=== PATIENT | male | born 1955 | race Caucasian/White ===

== ENCOUNTER 2020-05-31 04:50 | Emergency (ER) | payer OTHER, SELFPAY ==
[2020-05-31] VITALS (11 sets, daily range): BP systolic 77–112; BP diastolic 40–73; PULSE 59–72; RESP 20–114; TEMP 36.6; O2SAT 96–99
--- NOTE | ~2020-05-31 | XR_ITS ---
EXAMINATION: XR chest 1V portable EXAM DATE: 05/31/2020 06:33 INDICATION: Fall. TECHNIQUE: Portable AP frontal chest x-ray was obtained. There is no prior study for comparison. FINDINGS: There is a dual lead pacemaker/AICD seen with leads projecting over the expected locations of the right atrial appendage and right ventricle. The lungs are clear. There are no pleural effusio ns. The cardiomediastinal silhouette is within normal limits. There is no pneumothorax suspected. The bones and soft tissues are unremarkable. IMPRESSION: No acute cardiopulmonary findings. Reviewed, dictated and finalized at location A. ICAL HANDLER
--- NOTE | ~2020-05-31 | CT_ITS ---
EXAMINATION: CT brain wo con EXAM DATE: 05/31/2020 05:43 INDICATION: Fall, head injury. TECHNIQUE: Spiral CT of the head was performed without contrast. Axial, coronal and sagittal images were reviewed. The dose-length product (DLP) for this examination was 605.33 mGy-cm. The exposure w as tailored according to patient size, and iterative reconstruction (ASIR) was used as additional dos e reduction technique. There is no prior study for comparison. FINDINGS: There is no acute intraparenchymal hemorrhage. No evidence of intraparenchymal brain mass lesion. No evidence of acute infarction. There is no mass effect or midline shift. The ventricles are normal in size. There are no extra-axial collections. There are no acute calvarial fractures. T he orbits are unremarkable. Soft tissue is unremarkable. Mild left ethmoid mucoperiosteal thickenin g. IMPRESSION: 1. No acute intracranial findings. Reviewed, dictated and finalized at location A. OVER
--- NOTE | ~2020-05-31 | CT_ITS ---
EXAMINATION: CT facial & cervical spine wo EXAM DATE: 05/31/2020 05:43 INDICATION: Fall, head injury. TECHNIQUE: Spiral CT of the facial bones was acquired in the axial plane. Coronal reformatted images were also reviewed. Spiral CT of the cervical spine was performed without contrast. Axial images we re reviewed. Coronal and sagittal reformatted images were also reviewed. The dose-length product (DL P) for this examination was 461.42 mGy-cm. The exposure was tailored according to patient size, and iterative reconstruction (ASIR) was used as additional dose reduction technique. There is no prior s tudy for comparison. FINDINGS: FACIAL CT: There are no displaced acute nasal bone fractures. The mandible, sinuses and orbits are i ntact. The orbits, globes and extraocular muscles are unremarkable. Mild left ethmoid mucoperiost eal disease. There is moderate rightward nasal septal deviation. There is left maxillary sinus window procedure. CERVICAL CT: There is no evidence of acute cervical fracture. The odontoid process is intact. Pre-d ens space is normal. Prevertebral soft tissue is normal. There are no soft tissue abnormalities noelle ntified. There is no disc space widening or traumatic vertebral body subluxation suspected. Moderat e cervical arthropathy. Lung apices unremarkable. A detailed level by level evaluation of spondylosi s can be added as addendum if requested. IMPRESSION: 1. No acute facial or cervical fracture. 2. Mild left ethmoid mucoperiosteal thickening. 3. Moderate rightward nasal septal deviation. 4. Moderate cervical arthropathy. Reviewed, dictated and finalized at location A. ERNAIL SCULPTOR
--- NOTE | 2020-05-31 05:17 | ECG_ITS ---
Measurements Intervals [place] Rate: 64 P: 21 AR: 170 QRS: -4 QRSD: 106 T: 54 QT: 428 QTc: 444 Interpretive Statements SINUS RHYTHM NORMAL ECG Electronically Signed On 05-31-2020 8:35:37 [employer] by Yasir Capps D.O.
--- NOTE | 2020-05-31 05:19 | ED.GENADULT ---
HPI - General Adult General Chief complaint: Syncope <Ismael Macdonald DO - Last Filed: 05/31/20 19:18> Stated complaint: laceration <Ismael Macdonald DO - Last Filed: 05/31/20 19:18> Time Seen by Provider: 05/31/20 05:11 <Ismael Macdonald DO - Last Filed: 05/31/20 19:18> Source: RN notes reviewed <Ismael Macdonald DO - Last Filed: 05/31/20 19:18> History of Present Illness HPI narrative: Patient presents to emergency department from home for syncopal episode. Patient states he got up this evening to use the restroom when he had a syncopal episode. He states he remembers being dizzy and fell and he believes he struck the wall when he fell causing a laceration over his left superior scalp he is unsure of his last tetanus shot. This time patient complains of pain in his head as well as pain in the right side of his jaw worse with trying to open his mouth. He denies any recent illness denies any fevers or chills chest pain shortness of breath abdominal pain nausea vomiting or any other symptoms he states he is on a blood thinner but cannot recall the name <Ismael Macdonald DO - Last Filed: 05/31/20 19:18> Related Data Allergies/adverse reactions: Allergies Allergy/AdvReac Type Severity Reaction Status Date / Time Penicillins Allergy Unknown Verified 06/15/15 11:45 Sulfa (Sulfonamide Allergy Unknown Verified 06/15/15 11:45 Antibiotics) <Ismael Macdonald DO - Last Filed: 05/31/20 19:18> Review of Systems Review of Systems: Narrative: Gen.: Denies fevers or chills Eyes: Denies eye pain or visual change ENT: Denies congestion Respiratory: Denies shortness of breath or cough CV: See HPI GI: Denies abdominal pain nausea, emesis or diarrhea Musculoskeletal: Denies back pain or muscle pain Neuro: Denies numbness, tingling, weakness or focal weakness Skin: For scalp laceration Except as documented, all other systems reviewed and negative <Ismael Macdonald DO - Last Filed: 05/31/20 19:18> PMFSH Past Medical History Medical History: Medical History (Updated 05/31/20 @ 11:55 by Nishi Wynn MD) Diabetes mellitus Hypertension <Ismael Macdonald DO - Last Filed: 05/31/20 19:18> Social History Social History: Social History (Updated 05/31/20 @ 05:20 by Ismael Macdonald DO) Smoking status: Never smoker Gender identity (if verbalized by the patient): Male <Ismael Macdonald DO - Last Filed: 05/31/20 19:18> Exam Narrative: Exam Narrative: APPEARANCE: No acute distress, nontoxic, resting in bed EYES: EOMI HEENT: Normocephalic, TMs clear bilaterally nares patent oral mucosa moist tenderness palpation over the right TMJ no swelling or ecchymosis pain with fully opening of the mouth no loose or avulsed teeth Neck: Supple no midline tenderness palpation pain with rotation bilaterally in the lower neck RESPIRATORY: No respiratory distress Clear to auscultation bilaterally with no rhonchi wheezing or rales. CARDIOVASCULAR: Regular rate and rhythm without murmurs rubs or gallops. ABDOMINAL: Soft, nontender, nondistended, no rebound or guarding MUSCULOSKELETAl: Moves all extremities. No clubbing, cyanosis or edema. NEURO: Awake and alert x 4. Following commands, speech normal, no focal deficits SKIN:: Warm, dry. No rashes lesions or 6 cm laceration over the left superior scalp that is linear and deep with mild venous bleeding no foreign body PSYCHIATRIC: Normal affect/mood, <DO Jason Pino Last Filed: 05/31/20 19:18> Course Course Emergency Course: Care turned over to Dr. Wynn at shift change awaiting repeat orthostatic vital signs and further disposition <Ismael Macdonald DO - Last Filed: 05/31/20 19:18> Reevaluation(s) Reevaluation #1: Currently patient feeling okay, denying any symptoms. Patient was able to get out of bed and walk around without any lightheadedness or dizziness. Patient was informed to stop all the blood pressure medica
[2020-05-31] MEDS: SODIUM CHLORIDE 0.9% IV 1,000 ML 999 ML IV CONT ×2 (05:47→06:52)
[2020-05-31 05:59] LABS: Basophils Absolute Auto 0.1 K/mm3 (0.0-0.1); Basophils Percent Auto 0.6 % (0.2-1.2); Eosinophils Absolute Auto 0.3 K/mm3 (0-0.3); Eosinophils Percent Auto 2.5 % (0-4.4); Hematocrit 44.3 % (42.0-52.0); Hemoglobin 15.1 g/dL (14.0-18.0); Immature Granulocyte Absolute 0.04 K/mm3 (0.00-0.031); Immature Granulocyte Percent A 0.4 % (0-0.5); Lymphocytes Absolute Auto 1.17 K/mm3 (0.9-3.2); Lymphocytes Percent Auto 11.8 % (18.3-44.2); Mean Corpuscular HGB Conc 34.1 g/dl (32-36); Mean Corpuscular Hemoglobin 29.7 pg (26-34); Mean Platelet Volume 9.8 fl (7.4-10.4); Monocytes Absolute Auto 0.6 K/mm3 (0.1-0.6); Monocytes Percent Auto 5.8 % (2.6-8.5); Neutrophils Absolute Auto 7.8 K/mm3 (1.3-6.7); Neutrophils Percent Auto 78.9 % (45.5-73.1); Platelet Count Result 208 k/mm3 (150-375); Red Blood Count 5.09 M/mm3 (4.6-6.20); Red Cell Distribution Width 12.7 % (11.5-14.5); White Blood Count 9.9 K/mm3 (4.5-10.0)
[2020-05-31 06:12] LABS: Alanine Aminotransferase 38 U/L (4-50); Albumin Level 3.9 g/dL (3.5-5.1); Alkaline Phosphatase 100 U/L (38-126); Anion Gap 9 mmol/L (8-16); Aspartate Amino Transferase 39 U/L (17-59); Bilirubin,Total 0.6 mg/dL (0.2-1.3); Blood Urea Nitrogen 30 mg/dL (9-20); Calcium 9.4 mg/dL (8.4-10.2); Carbon Dioxide 27 mmol/L (22-30); Chloride 101 mmol/L (98-107); Estimated CRCL calculation 63 ml/min; Estimated Glomerular Filt Rate 55; Glucose 208 mg/dL (75-110); Sodium 137 mmol/L (137-145)
[2020-05-31 06:14] LABS: INR 1.1; Partial Thromboplastin Time 26.3 SECONDS (22.3-36.8); Prothrombin Time 14.8 Seconds (11.1-14.7)
[2020-05-31 06:22] LABS: Troponin I < 0.012 ng/mL (0.000-0.034)
[2020-05-31] MEDS: TETANUS,DIPHTHERIA,AC PERTUSSIS ADULT (0.5 ML) BOOSTRIX IM (06:35)
[2020-05-31 09:54] LABS: Lactic Acid Reflex 1.2 mmol/L (0.7-2.1)
[2020-05-31 10:07] LABS: Troponin I < 0.012 ng/mL (0.000-0.034)
== END 2020-05-31 12:29 | disposition home or self-care (01) ==
PROVIDERS: Emergency Medicine; Emergency Provider Emergency Medicine
DX: I95.1 Orthostatic hypotension (principal); S01.01XA Laceration without foreign body of scalp, initial encounter; E11.9 Type 2 diabetes mellitus without complications; I10 Essential (primary) hypertension; Z23 Encounter for immunization; Z79.01 Long term (current) use of anticoagulants; W18.39XA Other fall on same level, initial encounter
CPT/HCPCS: 12002; 36415; 70450; 70486; 71045; 72125; 80053; 83605; 84484; 85025; 85610; 85730; 90471; 90715; 93005; 96360; 96361; 99284; J7030